=== PATIENT | female | born 1995 | race Two or more races ===

== ENCOUNTER 2016-03-27 15:37 | Emergency (ER) | payer OTHER ==
[~2016-03-27] VITALS: Ht 165.1 cm; Wt 68.0 kg
[~2016-03-27 15:37] MED LIST: LEVE250T2 PO; LEVE500T6 PO
[2016-03-27 16:19] VITALS: BP 110/71
== END 2016-03-27 16:22 | disposition home or self-care (01) ==
LOC: ER 15:39
DX: G40.909 Epilepsy, unspecified, not intractable, without status epilepticus (principal)
CPT/HCPCS: 99283; A4606; Z7610

== ENCOUNTER 2017-09-20 19:02 | Emergency (ER) | payer MEDICAID, OTHER ==
[~2017-09-20] VITALS: Ht 162.6 cm; Wt 74.8 kg
[~2017-09-20 19:02] MED LIST changes: -LEVE500T6 PO; +LEVE500T9 PO
--- NOTE | 2017-09-20 19:20 | NUR ---
pt bib mother and boyfriend s/p having a siezure earlier today. per bf pt hit her head s/p seizure, and pt is c/o a headache. pt possibly had multiple seizure episodes today. pt currently being seen by the dr at bedside.
--- NOTE | 2017-09-20 19:30 | NUR ---
urine sample collected
[2017-09-20] MEDS ORDERED: LEVETIRACETAM (250 MG) 250 MG TABLET PO ONE ×3 (20:00→20:15)
[2017-09-20] MEDS ORDERED: ACETAMINOPHEN 325 MG TABLET PO ONE (20:00)
--- NOTE | 2017-09-20 20:00 | NUR ---
pt taken down for ct scan
[2017-09-20] MEDS ORDERED: ACETAMINOPHEN 325 MG TABLET ONE ×2 (20:12→20:14)
--- NOTE | 2017-09-20 20:25 | NUR ---
pt returned from ct
--- NOTE | 2017-09-20 20:32 | NUR ---
keppra 1000mg & tylenol 650mg given po.
--- NOTE | 2017-09-20 20:38 | NUR ---
test came back negative
--- NOTE | 2017-09-20 21:30 | NUR ---
Patient discharged to home in stable condition. Written and verbal after care instructions given. Patient verbalizes understanding of instruction. Pt instructed not to drive. Family at bedside will drive her home. Pt left ER via wheelchair by staff member, safely transported to car.
[2017-09-20 22:01] VITALS: BP 116/72
== END 2017-09-20 21:30 | disposition home or self-care (01) ==
LOC: ER 19:03
DX: G40.909 Epilepsy, unspecified, not intractable, without status epilepticus (principal); Z79.899 Other long term (current) drug therapy
CPT/HCPCS: 36415; 70450; 70486; 73030; 73630; 82542; 84703; 99285; A4606; Z7610

== ENCOUNTER 2021-12-11 16:25 | Emergency (ER) | payer MEDICAID, OTHER ==
[~2021-12-11] VITALS: Ht 160 cm; Wt 75.7 kg
--- NOTE | 2021-12-11 16:35 | NUR ---
PT HAD 2 ND EPSOIDE OF SEIZURE IN ED WATING AREA
--- NOTE | 2021-12-11 16:35 | NUR ---
RECEIVED PT 26 YRS FEMALE came from home accompay by mother ACTIVE SEIZUR AT 1500 TODAY skin lauceration and swa[place] on lips and face
--- NOTE | 2021-12-11 17:00 | NUR ---
MOTHER AT BED SIDE (MARY HAWK
--- NOTE | 2021-12-11 17:00 | NUR ---
INSERTED ango catheter g 20 on rt ac bldd drow and sent to lab
[2021-12-11] MEDS ORDERED: IV NS 0.9% 1,000 ML BAG IV ONE (17:30)
[2021-12-11 17:37] LABS: BASOPHILS % (AUTO) 0.1 % (0.0-2.0); EOSINOPHILS % (AUTO) 2.4 % (0.0-6.0); HEMATOCRIT 39 % (33-45); LYMPHOCYTES # (AUTO) 2.2 K/uL (0.8-4.8); LYMPHOCYTES % (AUTO) 32.2 % (20.0-44.0); MEAN CORPUSCULAR HGB CONC 33 g/dl (31.0-36.0); MEAN CORPUSCULAR VOLUME 95 fL (82-100); MONOCYTES # (AUTO) 0.4 K/uL (0.1-1.30); MONOCYTES % (AUTO) 5.4 % (2.0-12.0); NEUTROPHILS # (AUTO) 4.1 K/uL (1.8-8.9); NEUTROPHILS % (AUTO) 59.9 % (43.0-81.0); PLATELET COUNT (AUTO) 185 K/uL (150-450); RED BLOOD CELL COUNT(AUTO) 4.14 MIL/uL (4.0-5.2); WHITE BLOOD COUNT (AUTO) 6.9 K/uL (4.3-11.0)
[2021-12-11 17:48] LABS: CALCIUM, SERUM 8.3 mg/dL (8.5-10.1); CARBON DIOXIDE 32 mmol/L (21-32); CHLORIDE 105 mmol/L (98-107); CREATININE 0.7 mg/dL (0.6-1.3); GLUCOSE 109 mg/dL (74-106); POTASSIUM 4.1 mmol/L (3.5-5.1); SODIUM SERUM 141 mmol/L (136-145); UREA NITROGEN, BLOOD 13 mg/dL (7-18)
[2021-12-11 17:52] LABS: ALANINE AMINOTRANSFERASE 28 U/L (12-78); ALBUMIN 3.5 g/dL (3.4-5.0); ALCOHOL, BLOOD < 3 mg/dL (0-0); ALKALINE PHOSPHATASE 74 U/L (46-116); ASPARTATE AMINOTRANSFERASE 16 U/L (15-37); BILIRUBIN,DIRECT 0.1 mg/dL (0.0-0.2); BILIRUBIN,TOTAL 0.2 mg/dL (0.2-1.0); TOTAL PROTEIN, SERUM 6.9 g/dL (6.4-8.2)
--- NOTE | 2021-12-11 18:05 | NUR ---
OPTION 9 PAGED. PER ANOOP
--- NOTE | 2021-12-11 18:06 | NUR ---
DR. AKI PALMA
--- NOTE | 2021-12-11 18:15 | NUR ---
TO CT SCAN OF HEAD
--- NOTE | 2021-12-11 18:45 | NUR ---
DINESES CHEST PAIN OR SOB
--- NOTE | 2021-12-11 19:27 | NUR ---
HAND OFF JOSELINE FLORENTINO
--- NOTE | 2021-12-11 21:50 | NUR ---
Patient discharged to home in stable condition. Written and verbal after care instructions given. Patient verbalizes understanding of instruction.IV removed. Catheter intact and site benign. Pressure and 4x4 applied to site. No bleeding noted.
[2021-12-11 21:51] VITALS: BP 115/70
== END 2021-12-11 21:51 | disposition home or self-care (01) ==
LOC: ER 16:53
DX: G40.909 Epilepsy, unspecified, not intractable, without status epilepticus (principal); R51.9 Headache, unspecified; M54.2 Cervicalgia; Z79.899 Other long term (current) drug therapy
CPT/HCPCS: 99285; 96360; 93005; 72125; 70450; 70486; 85025; 80048; 80076; 84703; 36415; 80320; 80307; J7030; G0480

== ENCOUNTER 2022-04-14 13:43 | Emergency (ER) | payer OTHER ==
[~2022-04-14] VITALS: Ht 160 cm; Wt 75.7 kg
--- NOTE | 2022-04-14 13:43 | NUR ---
BIB MOTHER STATING THAT SHE HAD A SEIZURE 2 DAYS AGO AND HIT HER HEAD, HEADACHE THAT HAS BEEN GETTING WORSE, DENIES ORAL TRAUMA. AMBULATORY, PLACED IN BED, AAOX4, BREATHING EVEN AND UNLABORED SATURATING AT 97%RA.
--- NOTE | 2022-04-14 14:35 | NUR ---
AT BEDSIDE FOR EVAL
--- NOTE | 2022-04-14 14:56 | NUR ---
PATIENT TAKEN TO CT VIA TEN
[2022-04-14] MEDS ORDERED: CEPH500C2 PO (16:34)
--- NOTE | 2022-04-14 17:02 | NUR ---
Patient discharged to home in stable condition. Written and verbal after care instructions given. Patient verbalizes understanding of instruction.
[2022-04-14 17:22] VITALS: BP 105/68
== END 2022-04-14 17:02 | disposition home or self-care (01) ==
LOC: ER 13:45
DX: S09.93XA Unspecified injury of face, initial encounter (principal); R56.9 Unspecified convulsions; L03.90 Cellulitis, unspecified; W18.30XA Fall on same level, unspecified, initial encounter; Y93.89 Activity, other specified; Y92.89 Other specified places as the place of occurrence of the external cause; Y99.8 Other external cause status
CPT/HCPCS: 70450-TC; 70486-TC

== ENCOUNTER 2022-05-18 10:06 | Emergency (ER) | payer OTHER ==
[~2022-05-18] VITALS: Ht 160 cm; Wt 73.5 kg
[~2022-05-18 10:06] MED LIST changes: +CEPH500C2 PO
--- NOTE | 2022-05-18 10:17 | NUR ---
SEIZURE PRECAUTION IN PLACE, PLACED PADS ON THE SIDERAILS, PLACED A MONITOR AND WILL CONTINUOUSLY MONITOR THE PATIENT.
[2022-05-18] MEDS ORDERED: LORAZEPAM 1 MG TABLET ONE (10:47)
[2022-05-18] MEDS ORDERED: LORAZEPAM 1 MG TABLET PO ONE (11:00)
[2022-05-18] MEDS ORDERED: CLOB20TA3 PO (11:01)
[2022-05-18 11:25] VITALS: BP 108/52
--- NOTE | 2022-05-18 11:25 | NUR ---
Patient discharged to home in stable condition. Written and verbal after care instructions given. Patient verbalizes understanding of instruction.
== END 2022-05-18 11:26 | disposition home or self-care (01) ==
LOC: ER 10:10
DX: G40.909 Epilepsy, unspecified, not intractable, without status epilepticus (principal); Z79.899 Other long term (current) drug therapy